=== PATIENT | male | born 1990 | race African-American/Black ===

== ENCOUNTER 2017-09-08 22:07 | Emergency (ER) | payer BC ==
[~2017-09-08] VITALS: Ht 190.5 cm; Wt 76.0 kg
[2017-09-09] MEDS ORDERED: TESSALON PERLE100 MG PO (01:47)
[2017-09-09 02:10] VITALS: BP 126/59
== END 2017-09-09 02:10 | disposition home or self-care (01) ==
LOC: EME 22:07
DX: J11.1 Influenza due to unidentified influenza virus with other respiratory manifestations (principal)
CPT/HCPCS: 71046; 87651 90; 99281; 99285